=== PATIENT | male | born 1985 | race Caucasian/White ===

== ENCOUNTER 2018-02-16 11:14 | Emergency (ER) | payer MEDICAID, OTHER ==
[2018-02-16 11:24] VITALS: BP 125/73
--- NOTE | 2018-02-16 11:45 | ER Document Report ---
ED Medical Screen (RME) - General Chief Complaint: Finger Injury Stated Complaint: FINGER ISSUE Time Seen by Provider: 02/16/18 11:39 Notes: 32-year-old male patient states he was playing around with knives and cut his finger. He was actually cutting up vegetables and cut his left fourth fingertip. He tried putting superglue all around the wound. I have greeted and performed a rapid initial assessment of this patient. A comprehensive ED assessment and evaluation of the patient, analysis of test results and completion of the medical decision making process will be conducted by additional ED providers. TRAVEL OUTSIDE OF THE [place] IN LAST 30 DAYS: No - Related Data Allergies/Adverse Reactions: No Known Allergies Allergy (Unverified 02/16/18 11:20) Past Medical History - Social History Frequency of alcohol use: Social Drug Abuse: Marijuana Renal/ Medical History: Denies: Hx Peritoneal Dialysis Past Surgical History: Reports: Hx Tonsillectomy Physical Exam - Vital signs Vitals: Temp Pulse Resp BP Pulse Ox 98.3 F 73 20 125/73 95 02/16/18 11:23 02/16/18 11:23 02/16/18 11:23 02/16/18 11:23 02/16/18 11:23 Course - Vital Signs Vital signs: Temp Pulse Resp BP Pulse Ox 98.3 F 73 20 125/73 95 02/16/18 11:23 02/16/18 11:23 02/16/18 11:23 02/16/18 11:23 02/16/18 11:23 Doctor's Discharge - Discharge Referrals: LOCAL,NO [Primary Care Provider] - Follow up as needed
--- NOTE | 2018-02-16 12:08 | ER Document Report ---
HPI - HPI Time Seen by Provider: 02/16/18 11:39 Pain Level: 1 Notes: Patient is a 32-year-old male with no significant past medical history presents to the ED complaining of a laceration to his fourth distal finger of the left hand after cutting it when cutting vegetables prior to arrival. Patient states that he did put superglue all over it to try to stop the bleeding. Patient states that he is still able to move his finger without any difficulties.. He has minimal discomfort associated. Denies IV drug use. Tetanus was updated 3 years ago. Denies drug allergies. Denies any headache, fever, URI, sore throat , chest pain, palpitations, syncope, cough, shortness of breath, wheeze, dyspnea , abdominal pain, nausea/vomiting/diarrhea, urinary retention, dysuria, hematuria, numbness/tingling, muscle paralysis/weakness, or rash. - ROS Systems Reviewed and Negative: Yes All other systems reviewed and negative - DERM Skin Color: Normal Past Medical History - Social History Smoking Status: Current Every Day Smoker Frequency of alcohol use: Social Drug Abuse: Marijuana Family History: Reviewed & Not Pertinent Patient has suicidal ideation: No Patient has homicidal ideation: No Renal/ Medical History: Denies: Hx Peritoneal Dialysis Past Surgical History: Reports: Hx Tonsillectomy Vertical Provider Document - CONSTITUTIONAL Agree With Documented VS: Yes Notes: PHYSICAL EXAMINATION: GENERAL: Well-appearing, well-nourished and in no acute distress. LUNGS: Breath sounds clear to auscultation bilaterally and equal. No wheezes rales or rhonchi. HEART: Regular rate and rhythm without murmurs, rubs, gallops. Musculoskeletal: left 4th finger: FROM to passive/active. Strength 5+/5. N/V intact distal. No bony tenderness. Extremities: No cyanosis, clubbing, or edema b/l. Peripheral pulses 2+. Capillary refill less than 3 seconds. NEUROLOGICAL: Normal speech, normal gait. Normal sensory, motor exams PSYCH: Normal mood, normal affect. SKIN: Left 4th finger: + superficial avulsion skin laceration to the dorsal distal finger involving the distal 1/4 nail. Venous bleeding noted w/o any exposure of the bone or deeper laceration. - INFECTION CONTROL TRAVEL OUTSIDE OF THE [place] IN LAST 30 DAYS: No Course - Re-evaluation Re-evalutation: 02/16/18 12:35 Patient is an afebrile, well-hydrated, 32-year-old male who presents to the ED with left 4th finger avulsion skin/nail injury. No sutures warranted. Vitals are acceptable without any significant tachycardia, tachypnea, or hypoxia. PE is otherwise unremarkable for any neurovascular compromise, obvious tendon/ ligament rupture, obvious fracture/dislocation, septic joint. Wound dressing applied with hemostasis acheived using quick-clot sponge material. Wound instructions reviewed. Patient declined any Tylenol or motrin. Patient is nontoxic-appearing. No labs or imaging warranted at this time based on H&P. Rx for keflex. Conservative measures otherwise for symptoms. Recheck with your PCM in 3-5 days. Consider consult orthopedics. Return to the ED with any worsening/concerning symptoms otherwise as reviewed in discharge. Patient is in agreement. - Vital Signs Vital signs: Temp Pulse Resp BP Pulse Ox 98.3 F 73 20 125/73 95 02/16/18 11:23 02/16/18 11:23 02/16/18 11:23 02/16/18 11:23 02/16/18 11:23 Discharge - Discharge Clinical Impression: Avulsion, finger tip Qualifiers: Encounter type: initial encounter Qualified Code(s): S61.209A - Unspecified open wound of unspecified finger without damage to nail, initial encounter Condition: Stable Disposition: HOME, SELF-CARE Instructions: Avulsion Injury ([facility]) Additional Instructions: Keep the skin clean Wash with soap and water Tylenol/ibuprofen if needed Triple antibiotic ointment daily, dressing changes daily (may take off the original dressing in 1-2 days) Take medication as directed Monitor for any worsening symptoms Recheck with your PCM in 2-3 days Return to the ED with any worsening symptoms and/or development of fever, headache, chest pain, palpitations, syncope, shortness of breath, trouble breathing, abdominal pain, n/v/d, abscess, purulent discharge, red streaks, worsening swelling, or other worsening symptoms that are concerning to you. Prescriptions: Cephalexin Monohydrate [Keflex 500 mg Capsule] 500 mg PO TID #15 capsule Referrals: [facility] [Provider Group] - Follow up as needed
== END 2018-02-16 13:16 | disposition home or self-care (01) ==
LOC: ER 11:14
DX: S61.215A Laceration without foreign body of left ring finger without damage to nail, initial encounter (principal); W26.0XXA Contact with knife, initial encounter; Y93.G1 Activity, food preparation and clean up; F17.200 Nicotine dependence, unspecified, uncomplicated
CPT/HCPCS: 99283